=== PATIENT | male | born 1985 | race Caucasian/White ===

== ENCOUNTER 2019-01-13 21:43 | Emergency (ER) | payer SELFPAY ==
--- OUTSIDE RECORDS SUMMARY | ~2019-01-13 | XMS | Clinical Summary ---
Demographics + + + | Address | [address] | | | [place] [address] | + + + | Home Phone | | + + + | Preferred Language | Unknown | + + + | Marital Status | Single | + + + | Caodaism Affiliation | Unknown | + + + | Race | Unknown | + + + | Ethnic Group | Unknown | + + + Author + + + | Author | [facility] [facility] | + + + | Organization | [facility] [employer] [facility] | + + + | Address | Unknown | + + + | Phone | Unavailable | + + + Support + + +---------+ + | Name | Relationship | Address | Phone | + + +---------+ + | Teodora Pederson | ECON | Unknown | | + + +---------+ + Care Team Providers + +------+ + | Care Campus President Name | Role | Phone | + +------+ + | Dr. Kailey | PP | Unavailable | + +------+ + Allergies Not on File Current Medications Not on file Active Problems Not on file Social History + +-------+ +--------+------+ | Tobacco [...] on file | | + + + Plan of Treatment Not on file Results Not on filefrom Last 3 Months"
[~2019-01-13 21:43] MED LIST: LYRICA150 MG PO; LYRICA50 MG PO; METOPROLOL SUCC50 MG PO; PANTOPRAZOLE SO40 MG PO; PRILOSEC20 MG PO
--- OUTSIDE RECORDS SUMMARY | 2019-01-13 21:46 | XMS ---
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 EEulalia VISIT COUNT (12 MO.) 1 NEELA Kim TOTAL 1 NOTE: Visits indicate total known visits. ED/UCC VISIT TRACKING (12 MO.) 01/13/2019 21:44 NEELA Jeronimo [place] TYPE: Emergency COMPLAINT: - ARM LAC INPATIENT VISIT TRACKING (12 MO.) No inpatient visits to display in this time frame [id number]
[2019-01-14] MEDS ORDERED: KEFLEX500 MG PO (01:24)
[2019-01-14] MEDS ORDERED: NORCO 5-325 TA1 EACH PO (01:24)
== END 2019-01-14 01:35 | disposition home or self-care (01) ==
LOC: ED 21:43
PROC: 05QY0ZZ Repair Upper Vein, Open Approach (ICD-10-PCS; principal; 2019-01-14)
DX: S45.912A Laceration of unspecified blood vessel at shoulder and upper arm level, left arm, initial encounter (principal); Z79.899 Other long term (current) drug therapy; W45.8XXA Other foreign body or object entering through skin, initial encounter
CPT/HCPCS: 12032; 73070; 73206; 80053; 82150; 82550; 83690; 85025; 85027; 86850; 86900; 86901; 86920; 90471; 90715; 99284-25; G0480; J0690; J7050; Q9967

== ENCOUNTER 2019-05-06 15:24 | Emergency (ER) | payer MEDICAID ==
[~2019-05-06] VITALS: Ht 190.5 cm; Wt 104.3 kg
[~2019-05-06 15:24] MED LIST changes: +KEFLEX500 MG PO; +NORCO 5-325 TA1 EACH PO
--- OUTSIDE RECORDS SUMMARY | 2019-05-06 15:26 | XMS ---
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 Daniela VISIT COUNT (12 MO.) 2 NEELA Kim TOTAL 2 NOTE: Visits indicate total known visits. ED/UCC VISIT TRACKING (12 MO.) 05/06/2019 15:25 NEELA Jeronimo [place] TYPE: Emergency COMPLAINT: - POSS HEAT EXHAUSTION 01/13/2019 21:44 NEELA Jeronimo [place] TYPE: Emergency COMPLAINT: - ARM LAC DIAGNOSES: - Other foreign body or object entering through skin, initial encounter - Other rn long term care (current) drug therapy - Unspecified injury of left shoulder and upper arm, initial encounter - Laceration of unspecified blood vessel at shoulder and upper arm level, left arm, initial encounter INPATIENT VISIT TRACKING (12 MO.) No inpatient visits to display in this time frame [id number]
[2019-05-06] MEDS ORDERED: CLONIDINE HCL0.1 MG PO (15:44)
[2019-05-06] MEDS ORDERED: ADDERALL XR 2020 MG PO (15:44)
[2019-05-06] MEDS ORDERED: PROMETHAZINE HC25 M1 PO (19:45)
[2019-05-06] MEDS ORDERED: CHLORDIAZEPOXID25 MG PO (19:45)
== END 2019-05-06 20:32 | disposition home or self-care (01) ==
LOC: ED 15:24
DX: F10.239 Alcohol dependence with withdrawal, unspecified (principal); E83.42 Hypomagnesemia; E86.0 Dehydration; F17.200 Nicotine dependence, unspecified, uncomplicated; Z79.899 Other long term (current) drug therapy
CPT/HCPCS: 80053; 81001; 82550; 83735; 85025; 96361; 96365; 96375; 99284-25; 99406; J2060; J2550; J3475; J7030

== ENCOUNTER 2019-07-30 15:58 | Inpatient (IN) | payer SELFPAY ==
[~2019-07-30] VITALS: Ht 190.5 cm; Wt 97.2 kg
--- OUTSIDE RECORDS SUMMARY | ~2019-07-30 | XMS | Encounter Summary ---
Demographics + + + | Address | [address] | | | [place] [address] | + + + | Home Phone | | + + + | Preferred Language | Unknown | + + + | Marital Status | Single | + + + | Gnosticism Affiliation | Unknown | + + + | Race | Unknown | + + + | Ethnic Group | Unknown | + + + Author + + + | Author | [facility] | | | and [place] | + + + | Organization | [facility] | | | and [place] | + + + | Address | Unknown | + + + | Phone | Unavailable | + + + Support + + +---------+ + | Name | Relationship | Address | Phone | + + +---------+ + | Teodora Pederson | ECON | Unknown | | + + +---------+ + Care Team Providers + +------+ + | Care Dope Heater Name | Role | Phone | + +------+ + PCP | Unavailable | + +------+ + Encounter Details +--------+ + + + + | Date | Type | Department | Care Team | Description | +--------+ + + + + | 03/11/ | Hospital | [facility] | [place] | Nontraumatic Rupture | | 2008 | Encounter | [facility]ICAL [facility]ENTER | K, DPM [address] | of Other Tendons of | | | | CLINICAL DECISION | [address] | Foot and Ankle | | | | [address] | [place], [place] | | | | | [place], [place] | [address] | | | | | [address] | [phone] | | | | | [phone] | | | +--------+ + + + + Social History + +-------+ +--------+------+ | Tobacco Use | Types | Packs/Day | Years | Date | | | | | Used | | + +-------+ +--------+------+ | Never Assessed | | | | | + +-------+ +--------+------+ + + + | Sex Assigned at | Date Recorded | | | | + + + | Not on file | | + + + + + + + | Job Start Date | Occupation | Industry | + + + + | Not on file | Not on file | Not on file | + + + + + + + + | Travel History | Travel Start | Travel End | + + + + + + | No recent travel history available. | + + documented as of this encounter Plan of Treatment Not on filedocumented as of this encounter Visit Diagnoses + + | Diagnosis | + + | Nontraumatic rupture of other tendons of foot and ankle | + + documented in this encounter"
--- OUTSIDE RECORDS SUMMARY | ~2019-07-30 | XMS | Clinical Summary ---
Demographics + + + | Address | [address] | | | [place] [address] | + + + | Home Phone | | + + + | Preferred Language | Unknown | + + + | Marital Status | Single | + + + | Rastafari Affiliation | Unknown | + + + | Race | Unknown | + + + | Ethnic Group | Unknown | + + + Author + + + | Author | [facility] (Historical as of | | | 03-28-19) | + + + | Organization | [facility] (Historical as of | | | 03-28-19) | + + + | Address | Unknown | + + + | Phone | Unavailable | + + + Support + + +---------+ + | Name | Relationship | Address | Phone | + + +---------+ + | Teodora Pederson | ECON | Unknown | | + + +---------+ + Care Team Providers + +------+ + | Care Supervisor Insecticide Name | Role | Phone | + [...]
--- OUTSIDE RECORDS SUMMARY | ~2019-07-30 | XMS | Clinical Summary ---
Demographics + + + | Address | [address] | | | [place] [address] | + + + | Home Phone | | + + + | Preferred Language | Unknown | + + + | Marital Status | Single | + + + | Evangelical Affiliation | Unknown | + + + | Race | Unknown | + + + | Ethnic Group | Unknown | + + + Author + + + | Author | [facility] | | | and [place] | + + + | Organization | [facility] | | | and [place] | [...] Team Providers + +------+ + | Care Tool Design Engineer Name | Role | Phone | + +------+ + PCP | Unavailable | + +------+ + Allergies Not on File Medications Not on file Active Problems Not [...] recent travel history available. | + + Last Filed Vital Signs Not on file Plan of Treatment + + + + + | Health Maintenance | Due Date | Last Done | Comments | + + + + + | Vaccine: | | | | | Dtap/Tdap/Td (1 - | 5 | | | | Tdap) | | | | + + + + + | Vaccine: Influenza | | | | | (#1) | 9 | | | + + + + + Results Not on filefrom Last 3 Months"
--- OUTSIDE RECORDS SUMMARY | ~2019-07-30 | XMS | Clinical Summary ---
Demographics + + + | Address | [address] | | | [place] [address] | + + + | Home Phone | | + + + | Preferred Language | Unknown | + + + | Marital Status | Single | + + + | Zoroastrianism Affiliation | Unknown | + + + | Race | Unknown | + + + | Ethnic Group | Unknown | + + + Author + + + | Author | [facility] (Historical as of | | | 03-28-19) | + + + | Organization | [facility] (Historical as of | | | 03-28-19) [...] Team Providers + +------+ + | Care Surgical Assistant Certified Name | Role | Phone | + [...]
--- OUTSIDE RECORDS SUMMARY | ~2019-07-30 | XMS | Clinical Summary ---
Demographics + + + | Address | [address] | | | [place] [address] | + + + | Home Phone | | + + + | Preferred Language | Unknown | + + + | Marital Status | Single | + + + | Anabaptist Affiliation | Unknown | + + + | Race | Unknown | + + + | Ethnic Group | Unknown | + + + Author + + + | Author | [facility] | | | and [place] | + + + | Organization | [facility] | | | and [place] | [...] Team Providers + +------+ + | Care Accelerator Systems Director Name | Role | Phone | + [...]
--- OUTSIDE RECORDS SUMMARY | ~2019-07-30 | XMS | Encounter Summary ---
Demographics + + + | Address | [address] | | | [place] [address] | + + + | Home Phone | | + + + | Preferred Language | Unknown | + + + | Marital Status | Single | + + + | Yazidi Affiliation | Unknown | + + + | Race | Unknown | + + + | Ethnic Group | Unknown | + + + Author + + + | Author | [facility] | | | and [place] | + + + | Organization | [facility] | | | and [place] | [...] Team Providers + +------+ + | Care Spinner Concrete Pipe Name | Role | Phone | + +------+ + PCP | Unavailable | + +------+ + Encounter Details +--------+ + + + + | Date | Type | Department | Care Team | Description | +--------+ + + + + | 03/11/ | Hospital | [facility] | [place] | Nontraumatic Rupture | | 2008 | Encounter | MEDICAL CENTER | K, DPM [address] | of Other Tendons of | | | | CLINICAL DECISION | [address] | Foot and Ankle | | | | [address] | [place], [place] | | | | | [place], [place] | [address] | | | | | [address] | [phone] | | | | | [phone] | | | +--------+ + + + [...]
--- OUTSIDE RECORDS SUMMARY | ~2019-07-30 | XMS | Encounter Summary ---
Demographics + + + | Address | [address] | | | [place] [address] | + + + | Home Phone | | + + + | Preferred Language | Unknown | + + + | Marital Status | Single | + + + | Yarsanism Affiliation | Unknown | + + + | Race | Unknown | + + + | Ethnic Group | Unknown | + + + Author + + + | Author | [facility] | | | and [place] | + + + | Organization | [facility] | | | and [place] [...] Team Providers + +------+ + | Care Photo Offset Printer Name | Role | Phone | + +------+ + PCP | Unavailable | + +------+ + Encounter Details +--------+ + + + + | Date | Type | Department | Care Team | Description | +--------+ + + + + | 03/11/ | Hospital | [facility] | [place] | Nontraumatic Rupture | | 2008 | Encounter | MEDICAL CENTER | K, DPM [address] | of Other Tendons of | | | | CLINICAL DECISION | [address] | Foot and Ankle | | | | [address] | [place], [place] | | | | | [place], [place] | [address] | | | | | [address] | [phone] | | | | | [phone] | | | +--------+ + + + [...]
--- OUTSIDE RECORDS SUMMARY | ~2019-07-30 | XMS | Clinical Summary ---
Demographics + + + | Address | [address] | | | [place] [address] | + + + | Home Phone | | + + + | Preferred Language | Unknown | + + + | Marital Status | Single | + + + | Uatsdin Affiliation | Unknown | + + + | Race | Unknown | + + + | Ethnic Group | Unknown | + + + Author + + + | Author | [facility] | | | and [place] | + + + | Organization | [facility] | | | and [place] [...] Team Providers + +------+ + | Care Radio Time Sales Supervisor Name | Role | Phone | + [...]
--- OUTSIDE RECORDS SUMMARY | ~2019-07-30 | XMS | Clinical Summary ---
Demographics + + + | Address | [address] | | | [place] [address] | + + + | Home Phone | | + + + | Preferred Language | Unknown | + + + | Marital Status | Single | + + + | Congregation Affiliation | Unknown | + + + | Race | Unknown | + + + | Ethnic Group | Unknown | + + + Author + + + | Author | [facility] (Historical as of | | | 03-28-19) | + + + | Organization | [facility] (Historical as of | | | 03-28-19) [...] Team Providers + +------+ + | Care Coppersmith Apprentice Name | Role | Phone | + [...]
[~2019-07-30 15:58] MED LIST changes: +ADDERALL XR 2020 MG PO; +CHLORDIAZEPOXID25 MG PO; +CLONIDINE HCL0.1 MG PO; +PROMETHAZINE HC25 M1 PO
--- OUTSIDE RECORDS SUMMARY | 2019-07-30 16:00 | XMS ---
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 Daniela VISIT COUNT (12 MO.) Denae Kim TOTAL 3 NOTE: Visits indicate total known visits. ED/UCC VISIT TRACKING (12 MO.) 07/30/2019 15:58 NEELA Jeronimo [place] TYPE: Emergency COMPLAINT: - SOB, CHEST PAIN 05/06/2019 15:25 NEELA Jeronimo [place] TYPE: Emergency COMPLAINT: - POSS HEAT EXHAUSTION DIAGNOSES: - Other half-way (current) drug therapy - Alcohol dependence with withdrawal, unspecified - Dehydration - Nicotine dependence, unspecified, uncomplicated - Dizziness and giddiness - Hypomagnesemia 01/13/2019 21:44 NEELA Jeronimo [place] TYPE: Emergency COMPLAINT: - ARM LAC DIAGNOSES: - Oth foreign body or object entering through skin, init - Other marine oil terminal superintendent (current) drug therapy - Unsp injury of left shoulder and upper arm, init encntr - Lacerat unsp blood vessel at shldr/up arm, left arm, init INPATIENT VISIT TRACKING (12 MO.) No inpatient visits to display in this time frame [id number]
[2019-07-30] MEDS ORDERED: ZITHROMAX250 MG PO (16:15)
--- NOTE | 2019-07-30 19:00 | NUR ---
TELEPHONE REPORT RECEIVED FROM ED RN YADI. QUESTIONS ANSWERED, AWAITING PT'S ARRIVAL.
--- NOTE | 2019-07-30 19:25 | NUR ---
PT ARRIVED TO THE FLOOR, PT ON RA, O2 SAT WNL. CYLINDER CHECKER RONALD AND RN AFTAB IN ROOM TO COMPLETE QUICK ADMIT.
--- NOTE | 2019-07-30 20:30 | NUR ---
ASSESSMENT COMPLETE, VSS. DIASTOLIC BP ELEVATED, WILL MONITOR. O2 SAT WNL ON RA. SCHEDULED MEDS GIVEN (SEE EMAR). PT ON TELE#7, SINUS TACHY, HR 105-112. PT RESTING IN BED, REPORTS DIFFICULTY BREATHING AND STATES, "WHEN I START COUGHING, MY CHEST HURTS AND I CAN'T CATCH MY BREATH". RT BYRON NOTIFIED FOR SCHEDULED BREATHING TREATMENT. PT UP SBA, 800MLS OUTPUT NOTED. UPPER HALF OF BODY FLUSHED IN APPEARANCE. WHEN ASKED, PT STATES, "THE DOCTOR SAID HE THINKS IT'S BECAUSE MY HEART ISN'T PUMPING VERY WELL". BLE DUSKY IN APPEARING, CAP REFILL WNL. WILL MONITOR. NO FURTHER NEEDS, RT BYRON IN ROOM FOR BREATHING TREATMENT. CALL LIGHT IN REACH.
--- NOTE | 2019-07-30 21:30 | NUR ---
SPOKE TO DR CARDENAS REGARDING PT'S CHEWING HISTORY. PER HUONG PALAFOX FOR NICOTINE PATCH.
--- NOTE | 2019-07-30 23:04 | NUR ---
PRN ATIVAN GIVEN PER PT REQUEST. PT UP SITTING IN BED, SHALLOW BREATHS NOTED. TELE#[address], HR BETWEEN 105-115. LUNG SOUNDS CLEAR, DIMINISHED IN THE BASES. PT DENIES ADDITIONAL NEEDS, CALL LIGHT IN REACH.
--- NOTE | 2019-07-31 00:44 | NUR ---
PT ON TELE#7, HR INCREASING AND MAINTAINING 115-120. THIS RN IN ROOM TO ASSESS PT. PT RSTING IN BED, HOB ELEVATED. PT STATES, "I JUST CAN'T BREATH VERY WELL, THE ALBUTEROL SEEMED TO WORK THE BEST. WHEN I START COUGHING, THE MUSCLES IN MY CHEST START HURTING". O2 SAT 99-100% ON RA, RR 22. RESPIRATIONS SHALLOW, PT ABLE TO STATE 3-5 WORD PHRASES AT TIME, NO USE OF ASSESSORY MUSCLES AT THIS TIME. RT CALLED FOR PRN BREATHING TREATMENT PER PT REQUEST. BICYCLE DESIGNER MESSI AND RIVER TESTER RONALD IN ROOM TO SEE PT. PT REMAINS FLUSHED IN FACE, ARMS, AND CHEST. NO CHANGE FROM START OF SHIFT. BLE REMAIN DUSKY IN COLOR. 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 THEY ARE COLD A LOT TOO". WILL CONTINUE TO MONITOR. IN ROOM, CALL LIGHT IN REACH.
--- NOTE | 2019-07-31 01:45 | NUR ---
called to room to assess pt per Leyla, bedside RN. Pt awake, receiving neb treatment. Scattered wheezes noted to lung johnson, left greater than right. s1/s2 noted with no murmur, tones not muffled. Pt c/o feeling anxious and having a hard time catching breath and relaxing. Pt denies chest pain. Reports muscular pain with cough. Pt also voices concerns about possible alchohol withdrawal. Reports going through withdrawal in April and was given "a long acting benzo". Pt denies history of seizures with withdrawal. Pt also report drinking heavy on Saturday, but denies heavy alcohol use prior or after. Reviewed ativan dosing with pt and informed him that ativan is used to help withdrawal symptoms and to notify RN if begins to have s/s of withdrawal. Info passed on to Leyla. Tele noted to be ST 110-120. SPO2 94-99% on RA.
--- NOTE | 2019-07-31 02:36 | NUR ---
PRN ATIVAN GIVEN FOR ANXIETY AND PRN TYLENOL GIVEN FOR 5/10 PAIN IN CHEST MUSCLES. MANUAL BP RESULT OF 132/100. PT ON TELE#7, HR 110-120. O2 SAT WNL ON RA, S1 AND S2 NOTED.PT DENIES CHEST PAIN, BUT REPORTS PAIN IN CHEST MUSCLES RELATED TO INTERMITTENT COUGHING. SPUTUM SAMPLE COLLECTED AND SENT. NO CHANGES IN APPEARANCE, BLE COOL TO TOUCH AND DUSKY IN COLOR, BASELINE PER PT. SNACK PROVIDED, CALL LIGHT IN REACH. IN ROOM.
--- NOTE | 2019-07-31 04:13 | NUR ---
PT RESTING IN BED, EYES CLOSED. AUDIBLE SNORING NOTED, RR 17. PT ON TELE#7, HR 111-112, SINUS TACH. NO DISTRESS NOTED, PT APPEARS COMFORTABLE. CALL LIGHT IN REACH, IN ROOM.
--- NOTE | 2019-07-31 05:05 | NUR ---
PT RESTING IN BED, AUDIBLE SNORING NOTED. NO DISTRESS NOTED AT THIS TIME, PT APPEARS COMFORTABLE. TELE #[address], HR 108-111. CALL LIGHT IN REACH, IN ROOM.
--- NOTE | 2019-07-31 06:28 | NUR ---
prn ativan given (see emar). standing weight obtained, no further needs, call light in reach. in room.
--- NOTE | 2019-07-31 06:40 | NUR ---
PT A/OX4, USES CALL LIGHT APPROPERIATELY. DBP ELEVATED INTRMITTENTLY IN SHIFT. PT ON TELE#7, SINUS TACHY. HR 120 WITH ANXIETY, 108-112 AT REST. PRN ATIVAN GIVEN Q4H. PT DIAPHORETIC AT TIMES WITH INTERMITTENT SOB, SCHEDULED AND PRN BREATHING TREATMENTS. O2 SAT MAINTAINED ABOVE 90% ALL SHIFT. SBA WITH AMBULATION, VOIDING QS. NO BM. 2G SODIUM DIET, TOLERATING WELL. NO NAUSEA.
--- NOTE | 2019-07-31 07:00 | NUR ---
PROVIDED DR CARDENAS WITH TELEPHONE UPDATE REGARDING PT. DR CARDENAS MADE AWARE OF PT'S VITAL SIGNS, ANXIETY, FLUID INTAKE, AND INTERMITTENT DIAPHORESIS. NEW ORDERS READ BACK FOR 1800MLS FLUIDS RESTRICTION. ORDERS PUT IN BY THIS RN.
--- NOTE | 2019-07-31 08:32 | NUR ---
PATIENT RESTING IN BED, EYES CLOSED, LIGHTS OFF, CALL LIGHT IN REACH.
--- NOTE | 2019-07-31 09:22 | NUR ---
PATIENT SET UP FOR A SHOWER AND STATES HE WILL CALL WHEN HE IS READY TO HAVE HIS IV COVERED. RN IN ROOM AT THIS TIME. CALL LIGHT IN REACH. NO OTHER NEEDS AT THIS TIME.
--- NOTE | 2019-07-31 10:58 | NUR ---
PT RESTING IN BED- JUST LEAVING. PT STATED HIS PAIN IS A 4, AND SAID THT HE HAS A HIGH TOLERANCE FOR PAIN. HE WAS VERY PLEASED WITH HIS CARE AND SAID ALL THE STAFF HAVE GEEN GREAT, VERY HELPFUL AND HAVE KEPT HIM INFORMED. HAD GOOD VISIT WITH PT, DECLINED PRAYER AT THIS TIME. WILL FOLLOW NEEDED
--- NOTE | 2019-07-31 11:46 | NUR ---
PT IS RESTING QUIETLY. HE HAD A SHOWER THIS MORNING. EATING LUNCH AT THIS TIME. WOULD LIKE SOME ATIVAN AT 12N.
--- NOTE | 2019-07-31 12:00 | NUR ---
SPOKE WITH PATIENT IN ROOM. PATIENT HAS JUST FINISHED SHOWER. IS SOB WITH SPEAKING AT FIRST. PATIENT STATES HE LIVES WITH . IS LAID OFF FROM [employer] AT THIS TIME AND HAS NO INSURANCE COVERAGE. STATES HE SPOKE WITH OUR CHANNEL MARKETING SPECIALIST WHO HAS SAID HIS MAKES TOO MUCH FOR HIM TO QUALIFY FOR STATE MEDICAID. HE DOES NOT HAVE PCP. STATES HE USED TO SEE DR MCKEE BUT HE IS RETIRED. HE DID NOT FIND SOMEONE ELSE AFTER THAT. HE GETS HIS ANXIETY MEDICATIONS THROUGH [id number]. PATIENT IS QUITE ANXIOUS REGARDING THIS. DISCUSSED THAT HE WILL NEED TO BE ON NEW MEDICATIONS FOR HIS HF DIAGNOSIS, HE STATES HE WILL HAVE TO PAY FOR IT. DISCUSSED THAT THE DR AND PHARMACY CAN WORK WITH HIM ON WHAT HE NEEDS AND WHAT COSTS WOULD BE. DISCUSSED THAT HE WILL PROBABLY NEED TO FOLLOW UP WITH [facility]. PATIENT IS FEELING "OVERWHELMED" REGARDING NEW DIAGNOSIS AND MEDICATION NEEDS. HE DOES NOT HAVE QUESTIONS AT THIS TIME. UPDATED DR CARDENAS.
--- NOTE | 2019-07-31 12:41 | NUR ---
CCU NURSE, CHANDRIKA BROUGHT OVER TELE STRIPS. PT HAS CHANGES ON HIS TELE READINGS, T-WAVES HAVE CHANGED. DR CARDENAS AWARE. VERBAL ORDER GIVEN FOR EKG. CALLED RT FOR EKG. WINDOW TRIMMER APPRENTICE IS FOLLOWING UP WITH STAT READ ON THIS MORNINGS ECHO AND CARDIAC NURSE.
--- NOTE | 2019-07-31 12:47 | EKG ---
[facility] [address] [place], [place] [address] Signed Sinus tachycardia Rightward axis Nonspecific T wave abnormality Abnormal ECG No previous ECGs available Confirmed by PIPER CARDENAS DO ([id number]) on 07/31/2019 12:47:32 PM Electronically Signed By: PIPER CARDENAS DO 07/31/19 1247 PATIENT NAME: BROOKS PICHARDO SHELLY Electrocardiogram DATE OF : 83 PHYSICIAN: PIPER CARDENAS DO REPORT #: [id number] REPORT IS CONFIDENTIAL AND NOT TO BE RELEASED WITHOUT AUTHORIZATION
--- NOTE | 2019-07-31 13:35 | NUR ---
PATIENT SITTING UP ON COUCH, CALL LIGHT IN REACH, RN IN ROOM, NO OTHER NEEDS AT THIS TIME.
[2019-07-31] MEDS ORDERED: LISINOPRIL2.5 MG PO (13:58)
--- NOTE | 2019-07-31 20:10 | NUR ---
pt in bed, requested Ativan per anxiety. Ativan 1mg po given. SL RAC. Cooperative with assessment, Tele#[address], sinus tachy. Discoloration over chest and dusky cool extremities present. . voiding dark yellow urine in urinal.
--- NOTE | 2019-07-31 22:40 | NUR ---
WALKING HALLWAYS WITH STAFF, NO C/O CP, TELE#[address], SINUS TACHY, PULSE AT 110
--- NOTE | 2019-08-01 01:04 | NUR ---
PT UP TO NURSING STATION, INCREASED ANXIETY PRESENT, MILD HAND TREMORS PRESENT, DIAPHORETIC. CIWA SCORE 6. MEDICATED WITH PRN ATIVAN 1MG PO. EYE MASK AND EAR PLUGS GIVEN, TELE#[address], PULSE 105, R18. SAFETY REASSURED. CALL LIGHT AT BEDSIDE, CONTINUES ON FLUID RESTRICTION. AT BEDSIDE.
--- NOTE | 2019-08-01 01:37 | NUR ---
PT MOVING AROUND IN BED, ANXIOUS, CONCERNED ABOUT NOT BEING COMFORTABLE AND HIM BEING UNABLE TO SLEEP BECAUSE OF THE BED NOISES. CALL LIGHT ALARM ON. BED UNPLUGGED AT HIS REQUESTS. TELE#[address], PULSE 105-113, [id number]. MED
--- NOTE | 2019-08-01 04:28 | NUR ---
Resting, no distress, calm. call light at bedside, rooming in
--- NOTE | 2019-08-01 04:45 | NUR ---
CIWA SCALE 8,STATES THE FLOOR WAS MOVING, THE BED WAS MAKING NOISES, THAT HE HAS HAD NO SLEEP, THAT TO MANY PEOPLE ARE COMING INTO HIS ROOM, THAT TO MANY PAOPLE HAVE GIVEN HIM TOO MUCH/TOO LITTLE/ NOT ENOUGH/WRONG INFORMATION R/T MEDS/DIAGNOAIS. BETH RICHARDSON, WILL NOTIFY DR CARDENAS
--- NOTE | 2019-08-01 05:10 | NUR ---
TALKED TO PT ABOUT REASONG WHY HE SHOULD STAY, PT NOT VERY RECEPTIVE TO INFORMATION BEING GIVEN, ANXIOUS, WORD ELIZABETH PRESENT HIS ANXIETY INCREASED. REASSURED, AND I LET HIM TALK ABOUT HIS S/SX AND CONCERNS, STATES THAT HE, FEELS BETTER AND HIS WATER PILLS HELEPD, THAT THIS NEW MED THAT HE IS TAKING, MAKES HIM SEE AND HEAR THINGS, DENIES HAVING DT'S, TALKING IN CIRCLES, REPEATING CONVERSATION. CALMED SAMY AFTER BEING NOTIFIED THAT I WAS GOING TO CALL
--- NOTE | 2019-08-01 05:12 | NUR ---
DR CARDENAS NOTIFIED OF PT'S INCREASED ANXIETY, DECLINING ATIVAN AND OF HIM TRYING TO LEAVE AMA, "I WILL BE IN THERE SOON"
--- NOTE | 2019-08-01 05:21 | NUR ---
pt very anxious, dr Donnelly in room talking to pt
[2019-08-01] MEDS ORDERED: CARVEDILOL6.25 MG PO (05:48)
[2019-08-01] MEDS ORDERED: LASIX20 MG PO (05:48)
--- NOTE | 2019-08-01 05:51 | NUR ---
AMA FORM SIGNED BY PT AND
--- NOTE | 2019-08-01 05:51 | NUR ---
PATIENT HAS BEEN VERY RESTLESS ALL NIGHT . AT 5 AM HE DECIDED HE WAS LEAVING RN WAS CALLED IN TO TALK TO PATIENT. IS IN THE ROOM WITH PATIENT. CALL LIGHT IN REACH.
--- NOTE | 2019-08-01 06:09 | NUR ---
0610 - PT DC HOME AGAINST MEDICAL ADVICE, SCRIPTS AND DC INSTRUCTIONS FOR PNA AND CHF GIVE, PT CALMER ON DC. DC AMBULATORY WITH ALL BELONGINGS.
--- NOTE | 2019-08-01 10:23 | EKG ---
[facility] [address] [facility] [place] [address] Signed Sinus tachycardia Possible Left atrial enlargement Rightward axis Nonspecific ST abnormality Abnormal QRS-T angle, consider primary T wave abnormality Abnormal ECG When compared with ECG of 30-JUL-2019 16:02, No significant change was found Confirmed by PIPER CARDENAS DO ([id number]) on 08/01/2019 10:23:31 AM Electronically Signed By: PIPER CARDENAS DO 08/01/19 1023 PATIENT NAME: BROOKS PICHARDO SHELLY Electrocardiogram DATE OF : 83 PHYSICIAN: PIPER CARDENAS DO REPORT #: [id number] REPORT IS CONFIDENTIAL AND NOT TO BE RELEASED WITHOUT AUTHORIZATION
== END 2019-08-01 06:10 | disposition left against medical advice (07) | DRG 291 ==
LOC: ED 15:58 → MS 18:58
PROVIDERS: ADMIT Student in an Organized Health Care Education/Training Program
DX: I50.23 Acute on chronic systolic (congestive) heart failure (principal); J18.9 Pneumonia, unspecified organism; I42.0 Dilated cardiomyopathy; K76.1 Chronic passive congestion of liver; F90.9 Attention-deficit hyperactivity disorder, unspecified type; F10.21 Alcohol dependence, in remission; Z79.899 Other long term (current) drug therapy; Z53.29 Procedure and treatment not carried out because of patient's decision for other reasons
CPT/HCPCS: 36415; 71046; 80048; 80053; 80074; 80076; 82977; 83615; 83735; 83880; 84484; 85025; 87070; 87205; 93005; 93010; 93306; 94640; 96361; 99285-25; J0696; J1885; J1940; J7030

== ENCOUNTER 2021-04-29 19:48 | Emergency (ER) | payer OTHER ==
[~2021-04-29] VITALS: Ht 190.5 cm; Wt 97.2 kg
[~2021-04-29 19:48] MED LIST changes: +CARVEDILOL6.25 MG PO; +LASIX20 MG PO; +LISINOPRIL2.5 MG PO; +ZITHROMAX250 MG PO
--- OUTSIDE RECORDS SUMMARY | 2021-04-29 19:50 | XMS ---
PreManage Notification: BROOKS PICHARDO Security Guest Attendant Events No recent Security Events currently on file CRITERIA MET - PDMP - Group Notification CARE PROVIDERS CHELSEA MOISE [facility] 01/14/2019-Current PHONE: [phone] Sagrario has no Care Guidelines for this patient. Daniela VISIT COUNT (12 MO.) 1 NEELA Kim TOTAL 1 NOTE: Visits indicate total known visits. ED/UCC VISIT TRACKING (12 MO.) 04/29/2021 19:48 NEELA [facility] [place] TYPE: Emergency COMPLAINT: - BLOODY NOSE INPATIENT VISIT TRACKING (12 MO.) No inpatient visits to display in this time frame [id number]
[2021-04-29] MEDS ORDERED: ENTRESTO 24 MG1 EACH PO (20:00)
[2021-04-29] MEDS ORDERED: AMPHETAMINE SALT5 MG PO (20:01)
== END 2021-04-29 21:58 | disposition home or self-care (01) ==
LOC: ED 19:48
DX: R04.0 Epistaxis (principal); I50.9 Heart failure, unspecified; Z79.899 Other long term (current) drug therapy
CPT/HCPCS: 99283

== ENCOUNTER 2024-12-08 12:12 | Emergency (ER) | payer BC ==
[~2024-12-08] VITALS: Ht 190.5 cm; Wt 110.9 kg
[~2024-12-08 12:12] MED LIST changes: +AMPHETAMINE SALT5 MG PO; +ENTRESTO 24 MG1 EACH PO
--- OUTSIDE RECORDS SUMMARY | 2024-12-08 12:19 | XMS ---
PreManage Notification: BROOKS PICHARDO Security Tree Specialist Events No recent Security Events currently on file CRITERIA MET - Group Notification CARE PROVIDERS CHELSEA MOISE [facility] 01/14/2019-Current PHONE: Unknown Linda Zaldivar Physician Internal Sales Engineer Josue KASPER PHONE: [phone] Sagrario has no Care Guidelines for this patient. Daniela VISIT COUNT (12 MO.) Gerhard Kim TOTAL 1 NOTE: Visits indicate total known visits. ED/UCC VISIT TRACKING (12 MO.) 12/08/2024 12:13 NEELA [facility] [place] TYPE: Emergency COMPLAINT: - ABDOMINAL PAIN INPATIENT VISIT TRACKING (12 MO.) No inpatient visits to display in this time frame [email or web address]
[2024-12-08] MEDS ORDERED: LORAZEPAM1 MG PO (12:45)
[2024-12-08] MEDS ORDERED: ENTRESTO 49 MG1 EACH PO (12:45)
[2024-12-08 12:56] LABS: HEMOGLOBIN 11.2 g/dL (12.0-18.0); MCH 37.1 (27-36); MCV 105.9 fl (81-99); PLATELET COUNT 141 K/uL (140-440); RBC 3.02 M/ul (4.3-5.7); RDW 17.1 (10.5-15.0)
[2024-12-08 13:05] LABS: INR 1.72 (0.80-1.30); PROTIME 19.4 Sec (11.2-14.2)
[2024-12-08 13:13] LABS: ALBUMIN 1.6 g/dL (3.4-5.0); ALBUMIN/GLOBULIN RATIO 0.29 (1.1-2.4); ANION GAP 14.6 (7-21); BILIRUBIN, TOTAL 5.4 mg/dL (0.2-1.0); BUN/CREATININE RATIO 6.33 (6.0-28.6); CALCIUM 7.7 mg/dL (8.5-10.1); CREATININE, SERUM 7.74 mg/dL (0.70-1.30); POTASSIUM 4.6 mmol/L (3.5-5.1); PROTEIN, TOTAL 7.1 g/dL (6.4-8.2)
[2024-12-08 13:23] LABS: BANDS, MANUAL DIFF 3; EOSINOPHILS, MANUAL DIFF 1; LYMPHOCYTES, MANUAL DIFF 27; MONOCYTES, MANUAL DIFF 5; NEUTROPHILS, MANUAL DIFF 64
[2024-12-08 13:24] LABS: BASOPHILS, MANUAL DIFF 0
[2024-12-08] MEDS ORDERED: MORPHINE SULFATE 4 MG/ML VIAL IV ONE (15:00)
[2024-12-08] MEDS ORDERED: CALCIUM CARBONATE 500 MG CHEW PO ONE (15:45)
[2024-12-08 21:01] VITALS: BP 103/52
== END 2024-12-08 21:04 | disposition short-term general hospital (02) ==
LOC: ED 12:12
PROVIDERS: Family Medicine
DX: N17.9 Acute kidney failure, unspecified (principal); F10.90 Alcohol use, unspecified, uncomplicated; K74.60 Unspecified cirrhosis of liver; K76.82 Hepatic encephalopathy; Z79.899 Other long term (current) drug therapy
CPT/HCPCS: 74176; 80053; 82140; 83690; 85025; 85610; 99285-25; J2270